=== PATIENT | female | born 1970 | race African-American/Black ===

== ENCOUNTER 2016-12-11 22:55 | Emergency (ER) | payer MEDICAID, OTHER ==
[~2016-12-11] VITALS: Ht 175.3 cm; Wt 90.7 kg
[~2016-12-11 22:55] MED LIST: BACTRIM-DS1 EA ORAL; CYCLOBENZAPRINE10 MG ORAL; IBUPROFEN600 MG ORAL; IBUPROFEN800 MG ORAL; KEFLEX500 MG ORAL; KENALOG 0.1% CR15 GM APPLIC; NKM; NORCO 10-325 T1 EACH PO; NORCO 5-325 TA1 EACH ORAL; ONDANSETRON ODT4 MG ORAL; PENICILLIN V P500 MG ORAL; REGLAN10 MG PO
[2016-12-11 23:15] VITALS: BP 142/89
[2016-12-11] MEDS ORDERED: Ketorolac 30mg Inj IV ONE (23:30)
[2016-12-11] MEDS ORDERED: Metoclopramide 10mg/2ml Inj IVP ONE (23:30)
--- NOTE | 2016-12-11 23:33 | Emergency Room Report ---
History of Present Illness General Chief Complaint: Headache Source: Patient Present Illness HPI Is a 46-year-old female with no significant past medical history. She presents with chief complaint of headache. Onset was yesterday. Pain is localized the left frontal area. She has photophobia. Worse with light. Pain is 10 out of 10. Throbbing in nature. Tearing. She normally has occasional headache but never this bad. Laceration the bed migraine was when she was . Denies any other complaint. Dalton nauseous but no vomiting. No fever or chills. No focal deficit. 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 Hx Gastrointestinal Problems: No Hx Dialysis: No Hx Neurological Problems: No Hx Cerebrovascular Accident: No Hx Seizures: No Review of Systems Eye: Denies: blurred vision, eye pain ENT: Denies: ear pain, nose congestion, throat swelling Respiratory: Denies: cough, shortness of breath Cardiovascular: Denies: chest pain, palpitations Gastrointestinal: Denies: abdominal pain, diarrhea, nausea, vomiting Musculoskeletal: Denies: back pain, joint pain Skin: Denies: rash Neurological: Reports: headache, Denies: numbness Endocrine: Denies: increased thirst, increased urine Hematologic/Lymphatic: Denies: easy bruising All Other Systems: negative except mentioned in HPI Physical Exam Vital Signs Date Time Temp Pulse Resp B/P Pulse Ox O2 Delivery O2 Flow Rate FiO2 12/11/16 23:05 99.1 84 16 151/96 100 Room Air vitals with mild hypertension Sp02 EP Interpretation: reviewed, normal General Appearance: well appearing, no apparent distress, alert Head: normocephalic, atraumatic Eyes: bilateral eye EOMI, bilateral eye PERRL ENT: hearing grossly normal, normal pharynx Neck: full range of motion, supple, no meningismus Respiratory: chest non-tender, lungs clear, normal breath sounds Cardiovascular #1: regular rate, rhythm, no murmur Gastrointestinal: normal bowel sounds, non tender, no mass, no organomegaly, no bruit, non-distended Musculoskeletal: back normal, gait/station normal, normal range of motion Psychiatric: mood/affect normal Skin: warm/dry Medical Decision Making Diagnostic Impression: Primary Impression: Headache Qualified Codes: R51 - Headache ER Course Patient present with headache. This may be an ocular migraine. May be other headache tenths. No evidence of bleed or meningitis. No evidence of tumor. We 'll discharge home. She felt better now. CT/MRI/US Diagnostic Results CT/MRI/US Diagnostic Results : Imaging Test Ordered: CT head Impression read by radiologist. Negative. Last Vital Signs Date Time Temp Pulse Resp B/P Pulse Ox O2 Delivery O2 Flow Rate FiO2 12/11/16 23:05 99.1 84 16 151/96 100 Room Air Status: improved Disposition: HOME, SELF-CARE Condition: Stable Scripts Hydrocodone/Acetaminophen 5-325* (HYDROCODONE/ACETAMINOPHEN 5-325*) 1 Each Tablet 1 TAB ORAL Q6H Y for For Pain, #15 TAB 0 Refills Prov: PERFECTO BALL M.D. 12/12/16 Patient Instructions: General Headache Without Cause Additional Instructions: Followup with your DrThomas in 3-5 days. Return if worse. PERFECTO BALL M.D. Dec 11, 2016 23:33
[2016-12-11] MEDS: DiphenhydrAMINE 50mg/ml Inj IVP ONE ×2 (23:37→23:44)
[2016-12-12] MEDS ORDERED: HYDROmorphone 1mg/ml Carpuject IVP ONE (00:45)
[2016-12-12] MEDS ORDERED: HYDROCODON-ACE1 EA15 ORAL (01:18)
[2016-12-12 01:30] VITALS: BP 138/79
--- NOTE | 2016-12-12 09:20 | Diagnostic Imaging Report ---
Indications: Cephalgia Technique: Continuous helical CT imaging of the brain was performed with automatic exposure control on a Siemens sensation [address] scanner. Axial and coronal images were reconstructed at 5 mm slice thickness and interval. CTDI volume(s): 70 mGy Total DLP: 1418 mGy-cm Findings: Comparison: 12/29/12 Intracranial anatomy remains unremarkable. No evidence of mass or hemorrhage, other attenuation abnormality, mass effect, midline shift, hydrocephalus or increased intracranial pressure. Bone window images are unremarkable. Visualized paranasal sinuses and mastoid air cells are clear. IMPRESSION: Negative noncontrast CT scan of the brain , unchanged. This correlates with [facility] preliminary report. The CT scanner at [facility] is accredited by the [employer] and the scans are performed using protocols designed to limit radiation exposure to as low as reasonably achievable to attain images of sufficient resolution adequate for diagnostic evaluation.
== END 2016-12-12 01:30 | disposition home or self-care (01) ==
LOC: EMR 23:55
DX: R51 Headache (principal); I34.1 Nonrheumatic mitral (valve) prolapse
CPT/HCPCS: 70450; 96374; 96375; 99284; J1170; J1200; J1885; J2765

== ENCOUNTER 2017-06-06 19:36 | Emergency (ER) | payer OTHER ==
[~2017-06-06] VITALS: Ht 175.3 cm; Wt 95.3 kg
[~2017-06-06 19:36] MED LIST changes: +HYDROCODON-ACE1 EA15 ORAL
[2017-06-06] MEDS ORDERED: NKM (19:48)
[2017-06-06] MEDS ORDERED: Sodium Chloride 500ML 500 ML IV ONE (20:12)
[2017-06-06] MEDS ORDERED: DiphenhydrAMINE 50mg/ml Inj IVP ONE (20:15)
[2017-06-06] MEDS ORDERED: Metoclopramide 10mg/2ml Inj IVP ONE (20:15)
[2017-06-06] MEDS ORDERED: Ketorolac 30mg Inj IV ONE (20:15)
[2017-06-06 20:30] VITALS: BP 166/98
[2017-06-06 20:43] LABS: BASOPHILS % (AUTO) 0.9 % (0.0-2.0); EOSINOPHILS % (AUTO) 1.2 % (0.0-3.0); LYMPHOCYTES % (AUTO) 36.1 % (20.0-45.0); MEAN CORPUSCULAR HEMOGLOBIN 29.7 PG (27.0-31.0); MEAN CORPUSCULAR HGB CONC 30.9 G/DL (32.0-36.0); MEAN CORPUSCULAR VOLUME 96 FL (80-99); MEAN PLATELET VOLUME 7.5 FL (6.5-10.1); MONOCYTES % (AUTO) 10.5 % (1.0-10.0); NEUTROPHILS % (AUTO) 51.3 % (45.0-75.0); PLATELET COUNT 285 K/UL (150-450); RED BLOOD COUNT 3.83 M/UL (4.20-5.40); RED CELL DISTRIBUTION WIDTH 11.6 % (11.6-14.8); WHITE BLOOD COUNT 10.2 K/UL (4.8-10.8)
[2017-06-06 20:59] LABS: ANION GAP 7 mmol/L (5-15); CALCIUM 9.3 MG/DL (8.5-10.1); CARBON DIOXIDE 28 MMOL/L (21-32); CHLORIDE 104 MMOL/L (98-107); CREATININE 0.7 MG/DL (0.55-1.30); GLOMERULAR FILTRATION RATE > 60 mL/min (>60); POTASSIUM 3.7 MMOL/L (3.5-5.1); SODIUM 139 MMOL/L (136-145)
[2017-06-06 21:04] LABS: ALANINE AMINOTRANSFERASE 32 U/L (12-78); ASPARTATE AMINO TRANSFERASE 19 U/L (15-37); TOTAL PROTEIN 7.6 G/DL (6.4-8.2)
[2017-06-06] MEDS ORDERED: FIORICET1 EA ORAL (21:10)
[2017-06-06 21:15] VITALS: BP 176/103
[2017-06-06 21:20] VITALS: BP 176/103
--- NOTE | 2017-06-06 23:12 | Emergency Room Report ---
History of Present Illness General Chief Complaint: Hypertension Source: Patient Present Illness HPI 46-year-old female presents ED complaining of headache x3 days. Frontal, throbbing, nonradiating. Denies photophobia or blurry vision. Denies nausea or vomiting. Patient states she has history of migraines but checked her blood pressure today and it was high. Patient denies history of hypertension. States that on her last physical 6 months ago she was told by PMD her blood pressure was borderline elevated. Was recommended to make dietary changes and weight loss. States that for last few days she's been eating a lot of food high in salt. Denies chest pain or shortness of breath. No other aggravating relieving factors. 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 Hx Gastrointestinal Problems: No Hx Dialysis: No Hx Neurological Problems: No Hx Cerebrovascular Accident: No Hx Seizures: No Review of Systems All Other Systems: negative except mentioned in HPI Physical Exam Vital Signs Date Time Temp Pulse Resp B/P (MAP) Pulse Ox O2 Delivery O2 Flow Rate FiO2 06/06/17 19:43 98.2 65 14 198/94 99 Room Air Sp02 EP Interpretation: reviewed, normal General Appearance: no apparent distress, alert, GCS 15, non-toxic Head: normocephalic, atraumatic Eyes: bilateral eye normal inspection, bilateral eye PERRL ENT: hearing grossly normal, normal pharynx, no angioedema, normal voice Neck: full range of motion, supple/symm/no masses Respiratory: chest non-tender, lungs clear, normal breath sounds, speaking full sentences Cardiovascular #1: regular rate, rhythm, no edema Cardiovascular #2: 2+ carotid (R), 2+ carotid (L), 2+ radial (R), 2+ radial (L) , 2+ dorsalis pedis (R), 2+ dorsalis pedis (L) Gastrointestinal: normal bowel sounds, non tender, soft, non-distended, no guarding, no rebound Rectal: deferred Genitourinary: normal inspection, no CVA tenderness Musculoskeletal: back normal, gait/station normal, normal range of motion, non- tender Neurologic: alert, oriented x3, responsive, motor strength/tone normal, sensory intact, speech normal Psychiatric: judgement/insight normal, memory normal, mood/affect normal, no suicidal/homicidal ideation Reflexes: 3+ bicep (R), 3+ bicep (L), 3+ tricep (R), 3+ tricep (L), 3+ knee (R) , 3+ knee (L) Skin: normal color, no rash, warm/dry, well hydrated Lymphatic: no adenopathy Medical Decision Making Diagnostic Impression: Primary Impression: Headache Qualified Codes: R51 - Headache Additional Impression: Hypertension Qualified Codes: I10 - Essential (primary) hypertension ER Course Hospital Course 46-year-old female presents ED complaining of elevated BP, c/o headache Differential diagnoses include: hypertensive urgency, hypertensive emergency, CVA/TIA Clinical course Patient placed on stretcher. After initial history and physical I ordered labs , IVFs, reglan, toradol, CT HEad labs reviewed- all electrolytes normal, no leukocytosis, hemoglobin/hematocrit stable CT head unremarkable Upon reassessment patient's BP has reduced on its own without intervention. Patient states headache has resolved. I discussed with the patient that she needs to check her blood pressure over the course of the next week to see if there remains elevated. The blood pressure continues to be elevated she needs to followup with her PMD to start blood pressure medications Patient agrees with plan I. I feel this is a highly complex case requiring extensive working including EKG/Rhythm strip, Xray/CT/US, Blood/urine lab work, repeat exams while in ED, and administration of strong opiates/narcotics for pain control, admission to hospital or close patient follow up. Diagnosis - hypertension, headache Stable and discharged to home with Rx Aga. Instructed to followup with PMD. Return to ED if symptoms recur or worsen Labs Test 06/06/17 20:30 White Blood Count 10.2 K/UL (4.8-10.8) Red Blood Count 3.83 M/UL (4.20-5.40) Hemoglobin 11.4 G/DL (12.0-16.0) Hematocrit 36.8 % (37.0-47.0) Mean Corpuscular Volume 96 FL (80-99) Mean Corpuscular Hemoglobin 29.7 PG (27.0-31.0) Mean Corpuscular Hemoglobin Concent 30.9 G/DL (32.0-36.0) Red Cell Distribution Width 11.6 % (11.6-14.8) Platelet Count 285 K/UL (150-450) Mean Platelet Volume 7.5 FL (6.5-10.1) Neutrophils (%) (Auto) 51.3 % (45.0-75.0) Lymphocytes (%) (Auto) 36.1 % (20.0-45.0) Monocytes (%) (Auto) 10.5 % (1.0-10.0) Eosinophils (%) (Auto) 1.2 % (0.0-3.0) Basophils (%) (Auto) 0.9 % (0.0-2.0) Sodium Level 139 MMOL/L (136-145) Potassium Level 3.7 MMOL/L (3.5-5.1) Chloride Level 104 MMOL/L (98-107) Carbon Dioxide Level 28 MMOL/L (21-32) Anion Gap 7 mmol/L (5-15) Blood Urea Nitrogen 10 mg/dL (7-18) Creatinine 0.7 MG/DL (0.55-1.30) Estimat Glomerular Filtration Rate > 60 mL/min (>60) Glucose Level 102 MG/DL (74-106) Calcium Level 9.3 MG/DL (8.5-10.1) Total Bilirubin 0.5 MG/DL (0.2-1.0) Aspartate Amino Transf (AST/SGOT) 19 U/L (15-37) Alanine Aminotransferase (ALT/SGPT) 32 U/L (12-78) Alkaline Phosphatase 39 U/L (46-116) Total Protein 7.6 G/DL (6.4-8.2) Albumin 3.8 G/DL (3.4-5.0) Globulin 3.8 g/dL Albumin/Globulin Ratio 1.0 (1.0-2.7) CT/MRI/US Diagnostic Results CT/MRI/US Diagnostic Results : Imaging Test Ordered: CT Head Impression no acute process Last Vital Signs Date Time Temp Pulse Resp B/P (MAP) Pulse Ox O2 Delivery O2 Flow Rate FiO2 06/06/17 21:20 98.2 94 14 176/103 98 Room Air Status: improved Disposition: HOME, SELF-CARE Condition: Stable Scripts Acetamin/Butalbital/Caffeine* (FIORICET*) 1 Ea Tab 1 TAB ORAL Q6H, #15 TAB 0 Refills Prov: TERI HERMAN M.D. 06/06/17 Patient Instructions: Hypertension, [id number] TERI HERMAN M.D. Jun 06, 2017 23:12
--- NOTE | 2017-06-07 10:39 | Diagnostic Imaging Report ---
Indication: Headaches Technique: Continuous helical CT scanning of the head was performed without intravenous contrast material. Axial and coronal 5 mm sections were generated. Radiation dose was minimized using automated exposure control Dose: Total Dose Length Product - DLP [address] Dose Index - CTDIvol(s) 70.38 mGy. Comparison: Findings: The ventricular system is normal in size and configuration. There is no shift of midline structures. No abnormal extra-axial fluid collections are noted. There is no evidence of intracerebral bleeding. No other abnormal high or low density areas are noted within the brain. There is a cavum septum lucidum. Possible empty sella noted Impression: Normal CT scan of the head without contrast material. Incidental findings patent cavum septum lucidum, possible empty sella. This agrees with the preliminary interpretation provided overnight by [facility] telerad[facility]. The CT scanner at [facility] is accredited by the [employer] and the scans are performed using protocols designed to limit radiation exposure to as low as reasonably achievable to attain images of sufficient resolution adequate for diagnostic evaluation.
== END 2017-06-06 21:20 | disposition home or self-care (01) ==
LOC: EMR 19:55
DX: R51 Headache (principal); I10 Essential (primary) hypertension; I34.1 Nonrheumatic mitral (valve) prolapse
CPT/HCPCS: 36415; 70450; 80053; 85025; 96361; 96374; 96375; 99284; J1200; J1885; J2765; J7040

== ENCOUNTER 2018-08-11 12:37 | Emergency (ER) | payer OTHER ==
[~2018-08-11] VITALS: Ht 175.3 cm; Wt 108.9 kg
[~2018-08-11 12:37] MED LIST changes: +FIORICET1 EA ORAL
[2018-08-11 12:58] VITALS: BP 164/97
--- NOTE | 2018-08-11 13:01 | NUR ---
ED Nurse Note: Pt walked in to ER c/o coughing for 4 days and sore throat 09/25. pt aao x4 and skin clean and intact. lungs sound clear. per pt, she gets white, clear, and thick phlem and sputum upon coughing. pt calm and cooperative.
--- NOTE | 2018-08-11 13:36 | Emergency Room Report ---
History of Present Illness General Chief Complaint: Flu Like Symptoms Source: Patient Present Illness HPI 48-year-old female with history of pneumonia here complaining of 4 days of congestion, dry cough. She has not taken any medication for her symptoms. Fever, chills, rhinorrhea, sore throat, abdominal pain, nausea vomiting. She is concerned because in the past she has had 2 episodes of pneumonia. Denies chest pain, SOB, palpitations. She denies any history of high blood pressure. Dizziness, headache, vision changes. 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 Hx Gastrointestinal Problems: No Hx Dialysis: No Hx Neurological Problems: No Hx Cerebrovascular Accident: No Hx Seizures: No Review of Systems All Other Systems: negative except mentioned in HPI Physical Exam Vital Signs Date Time Temp Pulse Resp B/P (MAP) Pulse Ox O2 Delivery O2 Flow Rate FiO2 08/11/18 12:49 98.4 77 20 164/97 100 Room Air Sp02 EP Interpretation: reviewed, normal General Appearance: normal inspection, well appearing, no apparent distress Head: normocephalic, atraumatic Eyes: bilateral eye normal inspection, bilateral eye PERRL ENT: normal ENT inspection, hearing grossly normal, normal pharynx, no angioedema, normal voice, TMs + canals normal, uvula midline Neck: normal inspection, supple Respiratory: normal inspection, chest non-tender, normal breath sounds, no rhonchi, no wheezing Cardiovascular #1: normal inspection, regular rate, rhythm, no edema, no gallop Gastrointestinal: normal inspection, non tender, soft Rectal: deferred Genitourinary: no CVA tenderness Musculoskeletal: normal inspection, back normal, digits/nails normal Neurologic: normal inspection, alert, oriented x3 Psychiatric: normal inspection, judgement/insight normal Skin: normal inspection, normal color, no rash, warm/dry, palpation normal, well hydrated, normal turgor Lymphatic: normal inspection, no adenopathy Medical Decision Making PA Attestation diagnosis and treatment plans were discussed by supervising physician Nickie Ramos Diagnostic Impression: Primary Impression: Bronchitis ER Course 48-year-old female with history of pneumonia here complaining of 4 days of congestion, dry cough. She has not taken any medication for her symptoms. Fever, chills, rhinorrhea, sore throat, abdominal pain, nausea vomiting. She is concerned because in the past she has had 2 episodes of pneumonia. Denies chest pain, SOB, palpitations. She denies any history of high blood pressure. Dizziness, headache, vision changes. Patient is a nonsmoker Ddx considered but are not limited to bronchitis, pneumonia, respiratory infections Vital signs: are WNL, pt. is afebrile H&PE are most consistent with bronchitis, elevated blood pressure ORDERS: azithromycin, Tessalon Perles, albuterol inhaler ED INTERVENTIONS: None required at this time. DISCHARGE: At this time pt. is stable for d/c to home. Will provide printed patient care instructions, and any necessary prescriptions. Care plan and follow up instructions have been discussed with the patient prior to discharge. due to elevated blood pressure patient was advised to follow up with primary care provider for recheck of blood pressure and possible sinus medication as patient is denying any chest pain, dizziness, headache, vision changes today. Phenergan cannot be prescribed was too high blood pressure. Due to her history of recurrent pneumonia patient to be treated for early onset of bronchitis.no chest x-rays and at this point as the lungs are clear Last Vital Signs Date Time Temp Pulse Resp B/P (MAP) Pulse Ox O2 Delivery O2 Flow Rate FiO2 08/11/18 12:58 98.4 70 20 164/97 100 Room Air Disposition: HOME, SELF-CARE Condition: Stable Scripts Albuterol Sulfate (VENTOLIN HFA) 18 Gm Hfa.aer.ad 2 PUFFS INH EVERY 6 HOURS, #18 GM 0 Refills Prov: Rose Mehta 08/11/18 Benzonatate (Tessalon Perle) 100 Mg Capsule 100 MG ORAL THREE TIMES A DAY, #21 PERLE Prov: Rose Mehta 08/11/18 Azithromycin* (ZITHROMAX*) 250 Mg Tablet 250 MG ORAL DAILY, #6 TAB 0 Refills Take two tables once daily for 1 day, then one tablet once daily for 4 days. Prov: Rose Mehta 08/11/18 Patient Instructions: Acute Bronchitis, [id number] Additional Instructions: take medication as director, if new onset of fever or fever morning 104 intensive emergency room Rose Mehta Aug 11, 2018 13:36
[2018-08-11] MEDS ORDERED: TESSALON PERLE100 M2 ORAL (13:38)
[2018-08-11] MEDS ORDERED: VENTOLIN HFA18 GM INH (13:38)
[2018-08-11] MEDS ORDERED: ZITHROMAX250 MG ORAL (13:38)
[2018-08-11 13:50] VITALS: BP 120/58
--- NOTE | 2018-08-11 14:02 | NUR ---
ER DISCHARGE NOTE: Patient is cleared to be discharged per ERMD, pt is aox4, on room air, with stable vital signs. pt was given dc and prescription instructions, pt was able to verbalize understanding, pt id band removed. pt is able to ambulate with steady gait. pt took all belongings.
== END 2018-08-11 13:50 | disposition home or self-care (01) ==
LOC: EMR 13:30
DX: J40 Bronchitis, not specified as acute or chronic (principal); I34.1 Nonrheumatic mitral (valve) prolapse
CPT/HCPCS: 99282

== ENCOUNTER 2019-09-09 09:46 | Emergency (ER) | payer OTHER ==
[~2019-09-09] VITALS: Ht 175.3 cm; Wt 99.8 kg
[2019-09-09 09:43] VITALS: BP 174/92
--- NOTE | 2019-09-09 09:44 | NUR ---
ED Nurse Note: pt arrives from home with c/o body aches, mild stomach upset, dyspnea at rest and general malaise x 1 week. denies cough. able to speak full sentences well.
[~2019-09-09 09:46] MED LIST changes: +TESSALON PERLE100 M2 ORAL; +VENTOLIN HFA18 GM INH; +ZITHROMAX250 MG ORAL
--- NOTE | 2019-09-09 10:02 | NUR ---
ED Nurse Note: flu swab obtained, awaiting xray. no increased distress.
--- NOTE | 2019-09-09 10:12 | NUR ---
ED Nurse Note: pcxr done
--- NOTE | 2019-09-09 11:05 | Emergency Room Report ---
History of Present Illness General Chief Complaint: Flu Like Symptoms Source: Patient Present Illness HPI This patient states that for the past couple days she has had body aches and fatigue. She is also had some sensation of shortness of breath. She denies cough or congestion. She denies fever or chills. She denies nausea or vomiting. She denies chest pain. She denies abdominal pain. She denies diarrhea. She has no other complaints. COVID-19 risk:Contact w/high r: No COVID-19 risk:Travel to affect: No Has patient experienced mariano: No Allergies: Coded Allergies: No Known Allergies (Unverified , 10/15/12) Patient History Past Medical History: see triage record, HTN Social History: Denies: smoking, alcohol use, drug use Last Menstrual Period: jul Now: No Reviewed Nursing Documentation: PMH: Agreed; PSxH: Agreed Nursing Documentation-PMH Past Medical History: No History, Except For Hx Hypertension: Yes Hx Pacemaker: No Hx Asthma: No Hx Diabetes: No 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 Hx Gastrointestinal Problems: No Hx Dialysis: No Hx Neurological Problems: No Hx Cerebrovascular Accident: No Hx Seizures: No Review of Systems All Other Systems: negative except mentioned in HPI Physical Exam Vital Signs Date Time Temp Pulse Resp B/P (MAP) Pulse Ox O2 Delivery O2 Flow Rate FiO2 09/09/19 09:25 98.6 63 18 174/92 (119) 97 Room Air Sp02 EP Interpretation: reviewed, normal General Appearance: no apparent distress, alert, GCS 15, non-toxic Head: normocephalic, atraumatic Eyes: bilateral eye normal inspection ENT: hearing grossly normal, normal pharynx, no angioedema, normal voice Neck: normal inspection Respiratory: chest non-tender, lungs clear, normal breath sounds, no respiratory distress, no retraction, no accessory muscle use, speaking full sentences Cardiovascular #1: regular rate, rhythm, no edema Rectal: deferred Musculoskeletal: normal range of motion, gait/station normal, non-tender Neurologic: alert, motor strength/tone normal, oriented x3, sensory intact, responsive, speech normal Psychiatric: judgement/insight normal, memory normal, mood/affect normal, no suicidal/homicidal ideation Skin: no rash, normal color Medical Decision Making Diagnostic Impression: Primary Impression: Viral syndrome ER Course This patient has a clinical presentation with this patient has a clinical presentation consistent with viral syndrome. Symptoms are nonspecific. There are no red flags on physical exam that would make me concerned for serious illness. This includes no evidence of meningitis, intra-abdominal process that would make me concerned for appendicitis or diverticulitis or other surgical or emergency etiology. Overall, this patient's presentation is benign and the patient is nontoxic. There is no evidence of an emergency medical condition. The patient is given close return precautions and followup instructions. The evaluation was very reassuring with a normal lung exam, no respiratory distress , normal pulse oximetry. I am not concerned for pneumonia in this patient. This is most likely viral and will not need antibiotic therapy. The patient currently presents during pandemic of novel COVID-19. I educated the patient that at this time this is a count includes the [facility] and is unable to support COVID- 19 screening and people that are otherwise healthy and well-appearing without evidence of decompensation. I did educate the patient that he could have any number of viral infections to include influenza, rhinovirus or COVID-19. The patient was educated that he should self-quarantine for 14 days as a precaution and not come into contact with any one that is elderly or has multiple chronic medical conditions. The patient was also educated of the signs and symptoms that indicate worsening of a respiratory virus and would require return to the emergency department which includes worsening symptoms and difficulty breathing. At this time, I did not identify an emergency medical condition or condition that requires admission to the hospital. The patient is given close return precautions and follow-up instructions. Influenza A&B negative Chest X-Ray Diagnostic Results Chest X-Ray Diagnostic Results : Chest X-Ray Ordered: Yes # of Views/Limited/Complete: 1 View Indication: Shortness of Breath EP Interpretation: Yes Interpretation: no consolidation, no effusion, no pneumothorax, no acute cardiopulmonary disease Impression: No acute disease Electronically Signed by: Mattie Rodriguez DO Last Vital Signs Date Time Temp Pulse Resp B/P (MAP) Pulse Ox O2 Delivery O2 Flow Rate FiO2 09/09/19 09:43 98.6 63 18 174/92 97 Room Air Disposition: HOME, SELF-CARE Condition: Stable Referrals: [facility],REFERRING (PCP) Mattie Rodriguez DO Sep 09, 2019 11:05
--- NOTE | 2019-09-09 11:18 | NUR ---
ED Nurse Note: Pt cleared by health care Provider for discharge. DC instructions/prescription was given and explained to pt and verbalized understanding of teachings. All medical devices such as ID band removed. Pt is AAO x4, ambulatory and left with all personal belongings. covid precautions given.
[2019-09-09 11:19] VITALS: BP 168/89
--- NOTE | 2019-09-09 11:32 | Diagnostic Imaging Report ---
Indication: Dyspnea Comparison: 11/23/2015 A single view chest radiograph was obtained. Findings: Cardiomediastinal appearance is within normal limits for age. The lungs are clear. Pulmonary vascularity is appropriate. The diaphragmatic contour is smooth and costophrenic angles are sharp. No pleural effusions are identified. The bones are unremarkable. Impression: No acute findings
== END 2019-09-09 11:21 | disposition home or self-care (01) ==
LOC: EMR 10:17
DX: B34.9 Viral infection, unspecified (principal); I10 Essential (primary) hypertension
CPT/HCPCS: 71045; 86710; 99283

== ENCOUNTER 2019-09-22 15:14 | Emergency (ER) | payer OTHER ==
[~2019-09-22] VITALS: Ht 175.3 cm; Wt 99.8 kg
[2019-09-22] MEDS ORDERED: Ketorolac 30mg Inj IV ONE (15:30)
[2019-09-22 15:35] VITALS: BP 181/105
[2019-09-22] MEDS ORDERED: SUMAtriptan 6mg/0.5ml Inj SUBQ PRN (15:45)
[2019-09-22] MEDS ORDERED: Excedrin Migraine tab ORAL ONE (15:45)
[2019-09-22] MEDS ORDERED: SUMAtriptan 6mg/0.5ml Inj SUBQ ONE (15:49)
[2019-09-22] MEDS ORDERED: CARVEDILOL6.25 MG ORAL (16:02)
[2019-09-22] MEDS ORDERED: ASPIR 8181 MG ORAL (16:02)
[2019-09-22] MEDS ORDERED: ATORVASTATIN CA40 MG ORAL (16:02)
[2019-09-22] MEDS ORDERED: CLOPIDOGREL75 MG ORAL (16:02)
[2019-09-22 16:04] LABS: APPEARANCE,URINE CLEAR; BILIRUBIN, URINE NEGATIVE (NEGATIVE); COLOR,URINE PALE YELLOW; GLUCOSE, URINE (UA) NEGATIVE (NEGATIVE); KETONES,URINE 1+ (NEGATIVE); LEUKOCYTE ESTERASE ,URINE NEGATIVE (NEGATIVE); NITRITE,URINE NEGATIVE (NEGATIVE); PH,URINE 6 (4.5-8.0); PROTEIN,URINE NEGATIVE (NEGATIVE); UROBILINOGEN,URINE NORMAL MG/DL (0.0-1.0)
[2019-09-22] MEDS ORDERED: FUROSEMIDE40 MG ORAL (16:05)
[2019-09-22] MEDS ORDERED: POTASSIUM CHLO10 MEQ ORAL (16:05)
[2019-09-22] MEDS ORDERED: SPIRONOLACTONE25 MG ORAL (16:05)
[2019-09-22] MEDS ORDERED: MAGNESIUM400 M2 PO (16:05)
--- NOTE | 2019-09-22 16:05 | NUR ---
ED Nurse Note: Patient walked in to ER c/o severe headache, nausea. Stated started a fiew hours ago, stated took Vicodin for mensis pain. Patient presented anxious, crying, AAO x4, VSS at this time.
[2019-09-22] MEDS ORDERED: ENTRESTO 24 MG1 EACH PO (16:06)
[2019-09-22 16:10] LABS: BASOPHILS % (AUTO) 1.3 % (0.0-2.0); EOSINOPHILS % (AUTO) 1.5 % (0.0-3.0); HEMATOCRIT 40.6 % (37.0-47.0); HEMOGLOBIN 14.1 G/DL (12.0-16.0); LYMPHOCYTES % (AUTO) 32.8 % (20.0-45.0); MEAN CORPUSCULAR VOLUME 90 FL (80-99); MONOCYTES % (AUTO) 12.1 % (1.0-10.0); NEUTROPHILS % (AUTO) 52.3 % (45.0-75.0); PLATELET COUNT 302 K/UL (150-450); RED BLOOD COUNT 4.52 M/UL (4.20-5.40); RED CELL DISTRIBUTION WIDTH 11.3 % (11.6-14.8); WHITE BLOOD COUNT 12.3 K/UL (4.8-10.8)
[2019-09-22 16:12] LABS: ANION GAP 11 mmol/L (5-15); BLOOD UREA NITROGEN 15 mg/dL (7-18); CALCIUM 9.7 MG/DL (8.5-10.1); CARBON DIOXIDE 24 MMOL/L (21-32); CHLORIDE 102 MMOL/L (98-107); CREATININE 0.7 MG/DL (0.55-1.30); POTASSIUM 3.6 MMOL/L (3.5-5.1); SODIUM 137 MMOL/L (136-145)
--- NOTE | 2019-09-22 16:14 | Emergency Room Report ---
History of Present Illness General Chief Complaint: Headache Source: Medical Record Present Illness HPI 49-year-old female with history of migraine headache here complaining of sudden onset of right-sided headache rating a 10 out of 10 with blurry vision. Appears to have elevated blood pressure upon arrival however reports that does not have a history of hypertension. Denies chest pain, palpitation, shortness of breath, cough or congestion. Denies fever and chills. Appears to be under the influence of an unknown stimulant. Reports to my nurse that prior to coming here took some Vicodin however did not help her. Denies abdominal pain, nausea vomiting at this time. Complains of photophobia. No unilateral or generalized weakness noted. Patient is neurovascularly intact. Denies . Reports that today her menstrual period started and usually she gets migraine headache upon the start of her menstrual periods. Allergies: Coded Allergies: No Known Allergies (Unverified , 10/15/12) COVID-19 Screening Contact w/high risk pt: No Recent Travel to affected area: No Experienced COVID-19 symptoms?: No Patient History Past Medical History: see triage record Past Surgical History: none Pertinent Family History: none Social History: Reports: drug use - marijuana Last Menstrual Period: on period Now: No Immunizations: UTD Reviewed Nursing Documentation: PMH: Agreed; PSxH: Agreed Nursing Documentation-PMH Past Medical History: No History, Except For Hx Hypertension: Yes Hx Pacemaker: No Hx Asthma: No Hx Diabetes: No 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 Hx Gastrointestinal Problems: No Hx Dialysis: No Hx Neurological Problems: No - migraine Hx Cerebrovascular Accident: No Hx Seizures: No Review of Systems All Other Systems: negative except mentioned in HPI Physical Exam Vital Signs Date Time Temp Pulse Resp B/P (MAP) Pulse Ox O2 Delivery O2 Flow Rate FiO2 09/22/19 15:27 98.4 62 16 181/105 (130) 99 Room Air Sp02 EP Interpretation: abnormal - Elevated blood pressure General Appearance: alert, mild distress Head: normocephalic, atraumatic Eyes: bilateral eye normal inspection, bilateral eye PERRL ENT: hearing grossly normal, EOM grossly intact, normal pharynx Neck: full range of motion, supple/symm/no masses Respiratory: chest non-tender, lungs clear, normal breath sounds, no rhonchi, no wheezing, speaking full sentences Cardiovascular #1: regular rate, rhythm, no edema, no murmur Gastrointestinal: normal bowel sounds, non tender, soft, non-distended, no guarding, no rebound Genitourinary: no CVA tenderness Musculoskeletal: back normal Neurologic: alert, motor strength/tone normal, oriented x3, sensory intact, responsive, speech normal Psychiatric: no suicidal/homicidal ideation Skin: no rash Lymphatic: no adenopathy Medical Decision Making PA Attestation All diagnoses and treatment plans were reviewed and discussed with my supervising physician Dr. Gonzales Diagnostic Impression: Primary Impression: Migraine headache Additional Impressions: HTN (hypertension) Marijuana abuse ER Course 49-year-old female with history of migraine headache here complaining of sudden onset of right-sided headache rating a 10 out of 10 with blurry vision. Appears to have elevated blood pressure upon arrival however reports that does not have a history of hypertension. Denies chest pain, palpitation, shortness of breath, cough or congestion. Denies fever and chills. Appears to be under the influence of an unknown stimulant. Reports to my nurse that prior to coming here took some Vicodin however did not help her. Denies abdominal pain, nausea vomiting at this time. Complains of photophobia. No unilateral or generalized weakness noted. Patient is neurovascularly intact. Denies . Reports that today her menstrual period started and usually she gets migraine headache upon the start of her menstrual periods. Ddx considered but are not limited to: Migraine headache with aura, migraine headache without aura, tension headache, cluster headache, TBI, subarachnoid hemorrhage pt not cooperative for EKG Vital signs: are WNL, pt. is afebrile H&PE are most consistent with: migraine RANDOLPH, HTN ORDERS: CBC, CMP, UA, urine , head CT, troponin, sumatriptan, Excedrin , Zofran ER intervention: NS bolus, sumatriptan, Zofran, DISCHARGE: At this time pt. is stable for d/c to home. Will provide printed patient care instructions, and any necessary prescriptions. Care plan and follow up instructions have been discussed with the patient prior to discharge. Avoid marijuana use, take medication as directed, follow with your primary care doctor, increase oral hydration. CT/MRI/US Diagnostic Results CT/MRI/US Diagnostic Results : Imaging Test Ordered: ct head no contrast Impression No intracranial bleed, within normal limits Last Vital Signs Date Time Temp Pulse Resp B/P (MAP) Pulse Ox O2 Delivery O2 Flow Rate FiO2 09/22/19 15:35 98.4 16 181/105 99 Room Air 09/22/19 15:27 62 Disposition: HOME, SELF-CARE Condition: Stable Scripts Ondansetron (Zofran) 4 Mg Tablet 4 MG ORAL Q6H PRN for Nausea & Vomiting, #14 TAB Prov: Rose Mehta 09/22/19 Aspirin/Acetaminophen/Caffeine (EXCEDRIN MIGRAINE CAPLET) 1 Each Tablet 1 EACH PO DAILY, #30 TAB Prov: Rose Mehta 09/22/19 Sumatriptan Succinate* (IMITREX*) 50 Mg Tablet 25 MG ORAL DAILY PRN MIGRAINE for 10 Days, #10 TAB Prov: Rose Mehta 09/22/19 Referrals: GALINA BONILLA (PCP) Patient Instructions: Hypertension, [id number], Migraine Headache Additional Instructions: Avoid marijuana use, take medication as directed, follow with your primary care doctor, increase oral hydration. Rose Mehta Sep 22, 2019 16:14
[2019-09-22 16:16] LABS: ALANINE AMINOTRANSFERASE 30 U/L (12-78); ALBUMIN 4.2 G/DL (3.4-5.0); ALBUMIN/GLOBULIN RATIO 1.1 (1.0-2.7); ALKALINE PHOSPHATASE 45 U/L (46-116); ASPARTATE AMINO TRANSFERASE 17 U/L (15-37); BILIRUBIN,TOTAL 0.6 MG/DL (0.2-1.0)
--- NOTE | 2019-09-22 16:20 | NUR ---
ED Nurse Note: Patient become more anxious, keep telling I want to walk out to get some fresh air.
--- NOTE | 2019-09-22 16:32 | Diagnostic Imaging Report ---
Indications: Headache and blurred vision Technique: Spiral acquisitions obtained through the brain. Angled axial and coronal 5 x 5 mm slices were reconstructed. Total dose length product 992 mGycm. CTDI vol(s) 53 mGy. Dose reduction achieved using automated exposure control Comparison: None. Findings: No acute intracranial hemorrhage or edema. No mass effect nor midline shift. Normal carpenter-white differentiation. Normal size ventricles and extra-axial CSF spaces. There is a patent cavum septum pellucidum. The calvarium is intact. Visualized orbits and sinuses are unremarkable. The mastoids are clear. Impression: Negative The CT scanner at [facility] is accredited by the [employer] and the scans are performed using protocols designed to limit radiation exposure to as low as reasonably achievable to attain images of sufficient resolution adequate for diagnostic evaluation.
[2019-09-22] MEDS ORDERED: EXCEDRIN MIGRA1 EAC1 PO (16:34)
[2019-09-22] MEDS ORDERED: IMITREX50 MG ORAL (16:34)
[2019-09-22] MEDS ORDERED: ZOFRAN4 M1 ORAL (16:34)
[2019-09-22 16:45] VITALS: BP 181/105
--- NOTE | 2019-09-22 16:45 | NUR ---
ER DISCHARGE NOTE: Patient is cleared to be discharged per ERMD, pt is aox4, on room air, with stable vital signs. pt was given dc and prescription instructions, pt was able to verbalize understanding, pt id band and iv site removed without complications. pt is able to ambulate with steady gait. pt took all belongings.
== END 2019-09-22 16:45 | disposition home or self-care (01) ==
LOC: EMR 15:52
DX: G43.909 Migraine, unspecified, not intractable, without status migrainosus (principal); I10 Essential (primary) hypertension; F12.10 Cannabis abuse, uncomplicated
CPT/HCPCS: 36415; 70450; 80053; 80307; 81003; 81025; 84484; 85025; 96361; 96374; 99284; J2405; J3030; J7030

== ENCOUNTER 2019-09-23 18:13 | Emergency (ER) | payer OTHER ==
[~2019-09-23] VITALS: Ht 175.3 cm; Wt 90.7 kg
[~2019-09-23 18:13] MED LIST changes: +ASPIR 8181 MG ORAL; +ATORVASTATIN CA40 MG ORAL; +CARVEDILOL6.25 MG ORAL; +CLOPIDOGREL75 MG ORAL; +ENTRESTO 24 MG1 EACH PO; +EXCEDRIN MIGRA1 EAC1 PO; +FUROSEMIDE40 MG ORAL; +IMITREX50 MG ORAL; +MAGNESIUM400 M2 PO; +POTASSIUM CHLO10 MEQ ORAL; +SPIRONOLACTONE25 MG ORAL; +ZOFRAN4 M1 ORAL
--- NOTE | 2019-09-23 18:23 | NUR ---
ED Nurse Note: Patient walked in to ER c/o severe headache. Patient was here at [facility] yestrday for the same reason, was prescribed medications, explanations was given do not abuse marijuana. Patient appear anxious, crying, stated after smoking marijuana headache started again. AAO x4, VSS at this time.
[2019-09-23 18:40] VITALS: BP 165/90
[2019-09-23] MEDS ORDERED: Ketorolac 30mg Inj IM ONE (18:45)
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
[2019-09-23 19:20] VITALS: BP 155/85
--- NOTE | 2019-09-23 19:20 | NUR ---
ER DISCHARGE NOTE: Patient is cleared to be discharged per ERMD, pt is aox4, on room air, with stable vital signs. pt was given dc instructions, pt was able to verbalize understanding, pt id band removed. pt is able to ambulate with steady gait. pt took all belongings. pt stable upon discharge.
[2019-09-24] MEDS ORDERED: TRAZODONE HCL100 MG ORAL (17:42)
[2019-09-24] MEDS ORDERED: FIORICET1 EA ORAL (17:42)
== END 2019-09-23 19:20 | disposition home or self-care (01) ==
LOC: EMR 18:45
DX: R51 Headache (principal); I10 Essential (primary) hypertension
CPT/HCPCS: 96372; 99283; J1885

== ENCOUNTER 2019-09-24 12:38 | Emergency (ER) | payer OTHER ==
[~2019-09-24] VITALS: Ht 175.3 cm; Wt 95.3 kg
--- NOTE | 2019-09-24 13:01 | NUR ---
ED Nurse Note: Pt walked into ED w/ c/o migraine R side of head for 4 days. RANDOLPH was in post head before and now in anterior R side. Pt was here on Sunday for same migraine and states med didn't help. Pt is alert and orientedx4, ambulatory.
[2019-09-24 13:05] VITALS: BP 154/98
--- NOTE | 2019-09-24 13:33 | Emergency Room Report ---
History of Present Illness General Chief Complaint: Headache Present Illness HPI 49-year-old female presents to the emergency department for the third day in the row complaining of 10 out of 10 in severity right-sided migraine headache. Patient describes having a history of migraines that typically present in the frontal area that have a visual aura. Patient states that 3 days ago she was at the [employer] and began to have blurry vision on the left eye and within 2 to 3 minutes she had a full-blown migraine that she states is on the right side of her head behind her eye that is throbbing in nature. Patient states that usually it takes longer for her migraine headaches to develop once she experiences a visual aura symptoms. Patient states that her visual symptoms have resolved. She states she has been to the emergency department on 2 previous visits and was given medications that never quite took the headache completely away. Patient states that again she woke up at 8 AM this morning with a 10 out of 10 severity right-sided headache. Patient reports some nausea she denies vomiting. She denies decrease in appetite. She denies neck pain/ stiffness, photophobia, fevers or chills. Patient reports history of high blood pressure but states that typically is well controlled with diet and exercise. Patient denies dizziness, weakness, paresthesias, difficulty with speech or swallowing. She denies any other associated symptoms other than the right-sided pain in her head. She also reports that typically her migraines are associated with onset of her menstrual cycle which she thought triggered this episode of headache. But patient states that she is also had migraines randomly in the past however all are usually presenting in the frontal area. She reports smoking history however she states she just discontinued cigarettes approximately 3 weeks ago. She denies estrogen use. She denies hypercoagulable disease. Denies recent surgeries. She denies / suspicion of . Denies dysuria, hematuria or urinary frequency. Allergies: Coded Allergies: No Known Allergies (Unverified , 10/15/12) COVID-19 Screening Contact w/high risk pt: No Recent Travel to affected area: No Experienced COVID-19 symptoms?: No Patient History Past Medical History: see triage record, other - migraine Past Surgical History: none Pertinent Family History: none Now: No Reviewed Nursing Documentation: PMH: Agreed; PSxH: Agreed Nursing Documentation-PMH Hx Hypertension: Yes Hx Pacemaker: No Hx Asthma: No Hx Diabetes: No 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 Hx Gastrointestinal Problems: No Hx Dialysis: No Hx Neurological Problems: No - migraine Hx Cerebrovascular Accident: No Hx Seizures: No Review of Systems All Other Systems: negative except mentioned in HPI Physical Exam Vital Signs Date Time Temp Pulse Resp B/P (MAP) Pulse Ox O2 Delivery O2 Flow Rate FiO2 09/24/19 12:50 98.4 77 20 159/100 (119) 96 Room Air Sp02 EP Interpretation: reviewed, normal General Appearance: no apparent distress, alert, GCS 15, non-toxic Head: normocephalic, atraumatic Eyes: bilateral eye normal inspection, bilateral eye PERRL, bilateral eye EOMI , bilateral eye other - no photophobia ENT: hearing grossly normal, normal voice, TMs + canals normal Neck: full range of motion, no meningismus Respiratory: lungs clear, normal breath sounds, speaking full sentences Cardiovascular #1: regular rate, rhythm Musculoskeletal: back normal, normal range of motion, gait/station normal, non- tender, other - ambulatory without assistance Neurologic: alert, motor strength/tone normal, oriented x3, sensory intact, cerebellar normal, responsive, speech normal, normal gait, no pronator, grossly normal, no focal defects, other - no facial droop. Psychiatric: judgement/insight normal Skin: normal color, normal inspection Medical Decision Making PA Attestation Dr. Farley is my supervising Physician whom patient management has been discussed with. Diagnostic Impression: Primary Impression: Headache Qualified Codes: R51 - Headache ER Course 49-year-old female presents to the emergency department for the third day in the row complaining of 10 out of 10 in severity right-sided migraine headache. Patient describes having a history of migraines that typically present in the frontal area that have a visual aura. Patient states that 3 days ago she was at the [facility] and began to have blurry vision on the left eye and within 2 to 3 minutes she had a full-blown migraine that she states is on the right side of her head behind her eye that is throbbing in nature. Patient states that usually it takes longer for her migraine headaches to develop once she experiences a visual aura symptoms. Patient states that her visual symptoms have resolved. She states she has been to the emergency department on 2 previous visits and was given medications that never quite took the headache completely away. Patient states that again she woke up at 8 AM this morning with a 10 out of 10 severity right-sided headache. Patient reports some nausea she denies vomiting. She denies decrease in appetite. She denies neck pain/ stiffness, photophobia, fevers or chills. Patient reports history of high blood pressure but states that typically is well controlled with diet and exercise. Patient denies dizziness, weakness, paresthesias, difficulty with speech or swallowing. She denies any other associated symptoms other than the right-sided pain in her head. She also reports that typically her migraines are associated with onset of her menstrual cycle which she thought triggered this episode of headache. But patient states that she is also had migraines randomly in the past however all are usually presenting in the frontal area. She reports smoking history however she states she just discontinued cigarettes approximately 3 weeks ago. She denies estrogen use. She denies hypercoagulable disease. Denies recent surgeries. She denies / suspicion of . Denies dysuria, hematuria or urinary frequency. Ddx considered but are not limited to migraine, SAH, Pseudomotor Cerebri, Mass lesion, Cluster RANDOLPH, Tension RANDOLPH, Post lumbar puncture RANDOLPH. Vital signs: are WNL, pt. is afebrile H&PE are most consistent with migraine headache--no focal neurological deficits ORDERS: - CBC: wbc's 11.2 otherwise WNL -BMP: unremarkable -Hypomagnesia: 1.7 -UA: c/w being on period. -Hcg: Negative -UDS: Positive for THC - MRI Brain w. Contrast.--Unremarkable ED INTERVENTIONS: - 1 Liter NS - 1g Magnesium IV - Reglan 10mg IV -Benadryl 50IV -Decadron 10mg IV --Pt. reports moderate improvement of her pain but not full resolution. -I do not identify an emergent condition at this time. With current presentation , pt. is stable for close outpatient follow up and conservative treatment. D/ w pt. to return promptly to ED with worsening or new symptoms. D/w pt. that full work up has been done twice and proven to be unremarkable pt. was highly encouraged to seek neurology evaluation- Pt. verbalizes' understanding and agreement with proposed treatment plan. DISCHARGE: At this time pt. is stable for d/c to home. Will provide printed patient care instructions, and any necessary prescriptions. Care plan and follow up instructions have been discussed with the patient prior to discharge. Labs Test 09/24/19 13:22 09/24/19 13:30 White Blood Count 11.7 K/UL (4.8-10.8) Red Blood Count 4.78 M/UL (4.20-5.40) Hemoglobin 14.5 G/DL (12.0-16.0) Hematocrit 43.5 % (37.0-47.0) Mean Corpuscular Volume 91 FL (80-99) Mean Corpuscular Hemoglobin 30.4 PG (27.0-31.0) Mean Corpuscular Hemoglobin Concent 33.3 G/DL (32.0-36.0) Red Cell Distribution Width 11.5 % (11.6-14.8) Platelet Count 187 K/UL (150-450) Mean Platelet Volume 8.3 FL (6.5-10.1) Neutrophils (%) (Auto) 64.9 % (45.0-75.0) Lymphocytes (%) (Auto) 26.0 % (20.0-45.0) Monocytes (%) (Auto) 7.1 % (1.0-10.0) Eosinophils (%) (Auto) 0.4 % (0.0-3.0) Basophils (%) (Auto) 1.5 % (0.0-2.0) Sodium Level 138 MMOL/L (136-145) Potassium Level 3.5 MMOL/L (3.5-5.1) Chloride Level 100 MMOL/L (98-107) Carbon Dioxide Level 25 MMOL/L (21-32) Anion Gap 14 mmol/L (5-15) Blood Urea Nitrogen 10 mg/dL (7-18) Creatinine 0.8 MG/DL (0.55-1.30) Estimat Glomerular Filtration Rate > 60 mL/min (>60) Glucose Level 95 MG/DL (74-106) Calcium Level 10.0 MG/DL (8.5-10.1) Magnesium Level 1.7 MG/DL (1.8-2.4) Urine Color Yellow Urine Appearance Clear Urine pH 5 (4.5-8.0) Urine Specific [place] 1.025 (1.005-1.035) Urine Protein 2+ (NEGATIVE) Urine Glucose (UA) Negative (NEGATIVE) Urine Ketones 4+ (NEGATIVE) Urine Blood 3+ (NEGATIVE) Urine Nitrite Negative (NEGATIVE) Urine Bilirubin 1+ (NEGATIVE) Urine Ictotest Negative (NEGATIVE) Urine Urobilinogen 4 MG/DL (0.0-1.0) Urine Leukocyte Esterase 1+ (NEGATIVE) Urine RBC 2-4 /HPF (0 - 2) Urine WBC 0-2 /HPF (0 - 2) Urine Squamous Epithelial Cells Few /LPF (NONE/OCC) Urine Bacteria Few /HPF (NONE) Urine Mucus Moderate /LPF (NONE/OCC) Urine HCG, Qualitative Negative (NEGATIVE) Urine Opiates Screen Negative (NEGATIVE) Urine Barbiturates Screen Negative (NEGATIVE) Phencyclidine (PCP) Screen Negative (NEGATIVE) Urine Amphetamines Screen Negative (NEGATIVE) Urine Benzodiazepines Screen Negative (NEGATIVE) Urine Cocaine Screen Negative (NEGATIVE) Urine Marijuana (THC) Screen Positive (NEGATIVE) CT/MRI/US Diagnostic Results CT/MRI/US Diagnostic Results : Imaging Test Ordered: MRI Brain W. Contrast Impression " Essentially unremarkable exam. No evidence of acute intracranial bleed, mass- effect, infarct or contrast-enhancing lesion. Incidental finding of patent cava septum pellucidum and so-called empty sella" Per official radiology report - Please see report for specific details. Last Vital Signs Date Time Temp Pulse Resp B/P (MAP) Pulse Ox O2 Delivery O2 Flow Rate FiO2 09/24/19 12:50 98.4 77 20 159/100 (119) 96 Room Air Status: improved Disposition: HOME, SELF-CARE Condition: Stable Scripts Trazodone Hcl* (DESYREL*) 100 Mg Tablet 100 MG ORAL BEDTIME for 4 Days, #4 TAB Prov: Sabine Parisi 09/24/19 Acetamin/Butalbital/Caffeine* (FIORICET*) 1 Ea Tab 1 TAB ORAL Q6H, #15 TAB 0 Refills Prov: Sabine Parisi 09/24/19 Patient Instructions: General Headache Without Cause, Migraine Headache Additional Instructions: Take medications as directed. Follow up with a Primary Care Provider within 3 days For a referral to have NEUROLOGIST Evaluation, even if your symptoms have resolved. Return sooner to ED if new symptoms occur, or current symptoms become worse. - Please note that this Emergency Department Report was dictated using [email or web address] technology software, occasionally this can lead to erroneous entry secondary to interpretation by the dictation equipment. Sabine Parisi Sep 24, 2019 13:32
[2019-09-24 13:43] LABS: BASOPHILS % (AUTO) 1.5 % (0.0-2.0); EOSINOPHILS % (AUTO) 0.4 % (0.0-3.0); HEMATOCRIT 43.5 % (37.0-47.0); HEMOGLOBIN 14.5 G/DL (12.0-16.0); MEAN CORPUSCULAR VOLUME 91 FL (80-99); MONOCYTES % (AUTO) 7.1 % (1.0-10.0); NEUTROPHILS % (AUTO) 64.9 % (45.0-75.0); PLATELET COUNT 187 K/UL (150-450); RED BLOOD COUNT 4.78 M/UL (4.20-5.40); RED CELL DISTRIBUTION WIDTH 11.5 % (11.6-14.8); WHITE BLOOD COUNT 11.7 K/UL (4.8-10.8)
[2019-09-24 13:56] LABS: ANION GAP 14 mmol/L (5-15); BLOOD UREA NITROGEN 10 mg/dL (7-18); CARBON DIOXIDE 25 MMOL/L (21-32); CHLORIDE 100 MMOL/L (98-107); CREATININE 0.8 MG/DL (0.55-1.30); POTASSIUM 3.5 MMOL/L (3.5-5.1); SODIUM 138 MMOL/L (136-145)
[2019-09-24 14:09] LABS: APPEARANCE,URINE CLEAR; BILIRUBIN, URINE 1+ (NEGATIVE); GLUCOSE, URINE (UA) NEGATIVE (NEGATIVE); KETONES,URINE 4+ (NEGATIVE); LEUKOCYTE ESTERASE ,URINE 1+ (NEGATIVE); NITRITE,URINE NEGATIVE (NEGATIVE); PH,URINE 5 (4.5-8.0); PROTEIN,URINE 2+ (NEGATIVE); UROBILINOGEN,URINE 4 MG/DL (0.0-1.0)
[2019-09-24] MEDS ORDERED: Gadavist 7.5mMol/7.5ml vial IV PRN (14:15)
[2019-09-24 14:19] LABS: COLOR,URINE YELLOW
[2019-09-24 16:40] VITALS: BP 150/99
--- NOTE | 2019-09-24 17:05 | Diagnostic Imaging Report ---
Indication: Headache and blurred vision out of left eye Technique: Axial diffusion weighted images, sagittal T1 FLAIR, axial T2 FLAIR, axial T2 fat saturated PROPELLER, axial T2*GRE, axial T1 FLAIR, postcontrast axial and coronal T1 FLAIR images obtained through the brain Comparison: No comparison MRI. Reference made to CT scan dated 09/22/2019 Findings: No abnormal foci of restricted diffusion to suggest acute infarct are demonstrated. No acute intracranial hemorrhage or edema. No mass effect nor midline shift. Normal size ventricles and extra-axial CSF spaces. There is a patent cavum septum lucidum. No unusual contrast enhancement is demonstrated. Visualized orbits are unremarkable. The sinuses are clear. Empty sella incidentally noted. Impression: Essentially unremarkable exam. No evidence of acute intracranial bleed, mass effect, infarct, or contrast enhancing lesion. Incidental findings of patent cava septum pellucidum and so-called empty sella
[2019-09-24] MEDS ORDERED: Dexamethasone 4mg/ml vial IVP ONE (17:15)
[2019-09-24] MEDS ORDERED: Metoclopramide 10mg/2ml Inj IVP ONE (17:15)
[2019-09-24] MEDS ORDERED: DiphenhydrAMINE 50mg/ml Inj IVP ONE (17:15)
[2019-09-24] MEDS ORDERED: TRAZODONE HCL100 MG ORAL (17:42)
[2019-09-24] MEDS ORDERED: FIORICET1 EA ORAL (17:42)
[2019-09-24 18:20] VITALS: BP 133/73
--- NOTE | 2019-09-24 18:20 | NUR ---
ER DISCHARGE NOTE: Patient is cleared to be discharged per ERMD, pt is aox4, on room air, with stable vital signs. pt was given dc and prescription instructions, pt was able to verbalize understanding, pt id band and iv site removed without complications. pt is able to ambulate with steady gait. pt took all belongings. Pt educated regarding f/u appt with .
== END 2019-09-24 18:20 | disposition home or self-care (01) ==
LOC: EMR 14:19
DX: R51 Headache (principal); I10 Essential (primary) hypertension; E83.42 Hypomagnesemia
CPT/HCPCS: 36415; 70552; 80048; 80307; 81003; 81025; 83735; 85025; 96361; 96365; 96375; 99284; A9585; J1100; J1200; J2765; J7030

== ENCOUNTER 2019-10-03 17:12 | Emergency (ER) | payer OTHER ==
[~2019-10-03] VITALS: Ht 175.3 cm; Wt 99.8 kg
[~2019-10-03 17:12] MED LIST changes: +TRAZODONE HCL100 MG ORAL
[2019-10-03 17:21] VITALS: BP 144/87
--- NOTE | 2019-10-03 17:29 | NUR ---
ED Nurse Note: pt walked in to ER from home due to unresolved headache x 2 weeks. pt was here at [facility] in early September and had MRI and the result was negative. pt aao x4 and ambulatory. skin clean and intact. no cardiac or pulmonary distress noted at this time.
--- NOTE | 2019-10-03 17:31 | NUR ---
ED Nurse Note: ERMD spoke to pt about last MRI result.
[2019-10-03 17:36] VITALS: BP 149/71
--- NOTE | 2019-10-03 17:37 | NUR ---
ED Nurse Note: Pt cleared by health care Provider for discharge. Patient requested for pain medication, ERMD made aware but no medication ordered. DC instructions was given and explained to pt and verbalized understanding of teachings. All medical deviecs such as ID band removed. Pt is AAO x4, ambulatory and left with all personal belongings.
--- NOTE | 2019-10-03 18:15 | Emergency Room Report ---
History of Present Illness General Chief Complaint: Headache Source: Patient Present Illness HPI Patient presents with complaints of headache reports that there is an area just at the top of the head somewhat posteriorly Feels a pressure type sensation Patient also reported feeling a pressure sensation on the right forehead area Symptoms are off and on over the past several days denies any fevers or chills denies any chest pain denies any shortness of breath patient reports that initially with the symptoms there was some Blurriness of her vision however that has resolved Denies any vomiting or diarrhea denies any neck pain Allergies: Coded Allergies: No Known Allergies (Unverified , 10/15/12) COVID-19 Screening Contact w/high risk pt: No Recent Travel to affected area: No Experienced COVID-19 symptoms?: No Patient History Past Medical History: see triage record Now: No Reviewed Nursing Documentation: PMH: Agreed; PSxH: Agreed Nursing Documentation-PMH Past Medical History: No History, Except For Hx Hypertension: Yes Hx Pacemaker: No Hx Asthma: No Hx Diabetes: No 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 Hx Gastrointestinal Problems: No Hx Dialysis: No Hx Neurological Problems: No - migraine Hx Cerebrovascular Accident: No Hx Seizures: No Review of Systems All Other Systems: negative except mentioned in HPI Physical Exam Vital Signs Date Time Temp Pulse Resp B/P (MAP) Pulse Ox O2 Delivery O2 Flow Rate FiO2 10/03/19 17:13 98.8 91 18 168/97 (120) 98 Room Air Sp02 EP Interpretation: reviewed, normal General Appearance: well appearing, no apparent distress Head: normocephalic, atraumatic Eyes: bilateral eye PERRL, bilateral eye EOMI ENT: hearing grossly normal, normal pharynx Neck: full range of motion, no meningismus Respiratory: no respiratory distress, no retraction, no accessory muscle use Cardiovascular #1: regular rate, rhythm, no edema Musculoskeletal: normal inspection - Moving all extremities equally Neurologic: oriented x3, sensory intact, responsive Psychiatric: mood/affect normal Skin: no rash Lymphatic: normal inspection, no adenopathy Medical Decision Making Diagnostic Impression: Primary Impression: Headache ER Course Given the patient's history and exam multiple differentials and consideration including but not limited to neurological, neurosurgical, infectious process Patient's exam is fairly benign patient appears comfortable and there are no signs of any neurological changes On review of medical records patient has had a fairly extensive testing including MRI of the brain 9 days ago here Patient has also been on multiple medications including Imitrex At this time I feel unfortunately that the interventions and work-up have been exhausted through the emergency room Patient is encouraged to contact primary physician for further outpatient referral There are multiple referrals and avenues possible such as telemedicine and other primary physicians who are seeing patients There is unfortunately nothing further that I felt would be beneficial to the patient at this time patient does voice her unhappiness regarding this information however I did not feel that any further testing would be beneficial at this time or warranted and she is encouraged to follow closely as outpatient process CT/MRI/US Diagnostic Results CT/MRI/US Diagnostic Results : Impression mri brain 09/24/2019:Impression: Essentially unremarkable exam. No evidence of acute intracranial bleed, mass effect, infarct, or contrast enhancing lesion. Last Vital Signs Date Time Temp Pulse Resp B/P (MAP) Pulse Ox O2 Delivery O2 Flow Rate FiO2 10/03/19 17:36 98.5 96 18 149/71 98 Room Air Status: unchanged Disposition: HOME, SELF-CARE Condition: Stable Referrals: [facility] Patient Instructions: General Headache Without Cause Additional Instructions: Patient is provided with the discharge instructions notified to follow up with primary doctor in the next 2-3 days otherwise return to the er with any worsening symptoms. The examination and intervention in the emergency room has been exhausted. We understand that at this time is difficult following up with primary physicians however there are multiple resources including telemedicine,, and other referrals to primary physicians who are seeing patients to obtain some further help through outpatient process. Your signs and symptoms are not consistent with acute stroke. A copy of your MRI has been provided. It is impossible to predict future outcomes,however. Please note that this report is being documented using [employer] technology. This can lead to erroneous entry secondary to incorrect interpretation by the dictating instrument. Nickie Hernandez DO Oct 03, 2019 18:15
== END 2019-10-03 17:38 | disposition home or self-care (01) ==
LOC: EMR 17:30
DX: R51 Headache (principal); I10 Essential (primary) hypertension
CPT/HCPCS: 99284

== ENCOUNTER 2019-10-25 07:12 | Emergency (ER) | payer OTHER ==
[~2019-10-25] VITALS: Ht 175.3 cm; Wt 99.8 kg
--- NOTE | 2019-10-25 07:33 | NUR ---
ED Nurse Note: Pt from home walked in due to left big toe pain and injury started 1am this morning. States she jammed it on an rack this morning. No open wounds. AAO x4 and ambulatory.
--- NOTE | 2019-10-25 07:42 | Emergency Room Report ---
History of Present Illness General Chief Complaint: Lower Extremity Injury Source: Patient Present Illness HPI Patient 49-year-old female presents after increased left-sided fourth toe pain. She reports having hit her foot on a magazine rack. Injury occurred approximately 6 hours prior to arrival. Patient reports of increased pain to the area. She been able to ambulate after the injury. Denies other locations of injury. She had used cool compresses to attempt to alleviate the pain. Denies any other injury. 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 Hx Gastrointestinal Problems: No Hx Dialysis: No Hx Neurological Problems: No - migraine Hx Cerebrovascular Accident: No Hx Seizures: No Review of Systems All Other Systems: negative except mentioned in HPI Physical Exam Vital Signs Date Time Temp Pulse Resp B/P (MAP) Pulse Ox O2 Delivery O2 Flow Rate FiO2 10/25/19 07:23 98.4 83 16 152/91 (111) 95 Room Air General Appearance: well appearing, no apparent distress, alert, GCS 15 Head: normocephalic, atraumatic ENT: hearing grossly normal, normal voice Neck: full range of motion, supple Respiratory: chest non-tender, lungs clear, normal breath sounds, no respiratory distress, speaking full sentences Gastrointestinal: normal inspection Musculoskeletal: normal inspection, no calf tenderness, other - No significant soft tissue swelling or ecchymosis. Neurologic: normal gait Psychiatric: mood/affect normal Skin: no rash Medical Decision Making Diagnostic Impression: Primary Impression: Contusion of toe of left foot ER Course Patient presented for foot pain. Differential diagnosis include was not limited to contusion, fracture, sprain among others. Extremity x-ray was ordered to patient's recent trauma. Patient appears to be stable for outpatient management. She was given pain medications. X-ray imaging showed no evidence of acute displaced placed fracture. she is given prescription for further medications. Advised to follow-up with primary care last repairer helper for recheck. Advised to return if worse. Patient was advised to keep her foot elevated. Last Vital Signs Date Time Temp Pulse Resp B/P (MAP) Pulse Ox O2 Delivery O2 Flow Rate FiO2 10/25/19 07:23 98.4 83 16 152/91 (111) 95 Room Air Status: improved Disposition: HOME, SELF-CARE Condition: Stable Scripts Acetaminophen (Acetaminophen) 500 Mg Tablet 500 MG ORAL Q4H for PAIN, #30 TAB Prov: Ariel Isaac MD 10/25/19 Diclofenac Sodium (VOLTAREN) 100 Gm Gel..gram. 2 GM TP TWICE A DAY for pain, #100 GM Prov: Ariel Isaac MD 10/25/19 Ariel Isaac MD October 25, 2019 07:42
[2019-10-25] MEDS ORDERED: ACETAMINOPHEN500 M5 ORAL (07:44)
[2019-10-25] MEDS ORDERED: VOLTAREN100 G1 TP (07:44)
[2019-10-25] MEDS ORDERED: Ketorolac 60mg Inj IM ONE (07:45)
[2019-10-25 08:01] VITALS: BP 145/85
--- NOTE | 2019-10-25 08:01 | NUR ---
ED Nurse Note: Pt cleared by ERMD for discharge. DC instructions was given and explained to pt and verbalized understanding of teachings. prescription was sent electronically to the pharmacy of choice. All medical deviecs such as ID band removed. Pt is AAO x4, ambulatory and left with all personal belongings.
--- NOTE | 2019-10-25 10:32 | Diagnostic Imaging Report ---
EXAM: XR Left Toes, 2 or More Views CLINICAL HISTORY: PAIN TECHNIQUE: Frontal, lateral and oblique views of the toes of the left foot. COMPARISON: None FINDINGS: Bones/joints: No displaced fracture or dislocation identified. Joint space is maintained. No bony lesion. Soft tissues: Normal. IMPRESSION: No displaced fracture or dislocation identified.
== END 2019-10-25 08:01 | disposition home or self-care (01) ==
LOC: EMR 07:42
DX: S90.122A Contusion of left lesser toe(s) without damage to nail, initial encounter (principal); W22.09XA Striking against other stationary object, initial encounter; Y92.9 Unspecified place or not applicable; I10 Essential (primary) hypertension; Z85.3 Personal history of malignant neoplasm of breast
CPT/HCPCS: 96372; 99283